=== PATIENT | male | born 1965 | race Caucasian/White ===

== ENCOUNTER 2016-09-09 15:07 | Emergency (ER) | payer BC ==
[~2016-09-09] VITALS: Ht 185.4 cm; Wt 115.2 kg
[2016-09-09 15:58] VITALS: BP_SYST 123
--- NOTE | 2016-09-09 18:26 | NUR ---
Patient to ER bed 6 to gown for evaluation. Side rails up. Report given to Jeffrey CEDEÑO.
--- NOTE | 2016-09-09 18:26 | NUR ---
Pt report received from DAVIDSON Jerez. Pt c/o swelling and redness to RLE x 2 days. Pt states that he fell on a rock causing a sore. Scab noted to Right lee, red and swollen, pitting 1+, warm to touch. Pt denies hx of diabetes. Pt also states that he routinely uses sulfur scrubs to excoriate fungus from his legs. Generalized redness and swelling to RLE.
--- NOTE | 2016-09-09 19:05 | NUR ---
Pt care endorsed to DAVIDSON Mijares.
--- NOTE | 2016-09-09 19:15 | NUR ---
Patient is in stable condition with at bedside. Patient states that he is here for swelling and redness to right leg for 2 days. Scab to right lee noted with redness, swelling and warm to touch. Patient denies any pain at this time. No other compliants/injuries noted or per patient. Will continue to monitor.
--- NOTE | 2016-09-09 19:45 | NUR ---
ER at bedside examining patient.
[2016-09-09 20:27] VITALS: BP_SYST 123
--- NOTE | 2016-09-09 20:27 | NUR ---
Patient given written and verbal discharge instructions and verbalizes understanding. ER MD discussed with patient the results and treatment provided. Patient in stable condition. ID arm band removed. Rx of Nystatin and augmentin given. Patient educated on pain management and to follow up with PMD 2-3 days. Pain Scale 0/10 Opportunity for questions provided and answered.
== END 2016-09-09 20:27 | disposition home or self-care (01) ==
LOC: SED 15:07
DX: L03.115 Cellulitis of right lower limb (principal); L30.9 Dermatitis, unspecified; B35.6 Tinea cruris; F17.200 Nicotine dependence, unspecified, uncomplicated; Z71.6 Tobacco abuse counseling
CPT/HCPCS: 99283